=== PATIENT | male | born 1995 | race Caucasian/White ===

== ENCOUNTER 2018-11-24 15:27 | Emergency (ER) | payer SELFPAY ==
[~2018-11-24] VITALS: Ht 185.4 cm; Wt 70.8 kg
[2018-11-24 17:12] LABS: BASO % 0.2 % (0.0-1.0); HEMATOCRIT 43.4 % (42.0-52.0); HEMOGLOBIN 14.3 g/dl (13.5-17.5); LYMPH # 1.7 10^3/uL (1.5-6.5); LYMPH % 32.5 % (24.0-44.0); MEAN CORPUSCULAR HEMOGLOBIN 29.9 pg (27.0-33.0); MEAN CORPUSCULAR HGB CONC 32.9 g/dl (32.0-36.5); MEAN CORPUSCULAR VOLUME 90.6 fl (80.0-96.0); MONO # 0.4 10^3/uL (0.0-0.8); MONO % 6.8 % (0.0-5.0); NEUTROPHILS # 3.1 10^3/uL (1.8-7.7); NEUTROPHILS % 60.3 % (36.0-66.0); PLATELET COUNT, AUTOMATED 267 10^3/uL (150-450); RED BLOOD COUNT 4.79 10^6/uL (4.30-6.10); WHITE BLOOD COUNT 5.2 10^3/uL (4.0-10.0)
[2018-11-24 17:50] LABS: BLOOD UREA NITROGEN 8 MG/DL (7-18); CALCIUM LEVEL 8.8 MG/DL (8.5-10.1); CARBON DIOXIDE LEVEL 27 MEQ/L (21-32); CHLORIDE LEVEL 107 MEQ/L (98-107); CK-MB VALUE MASS < 1.0 NG/ML (<3.6); CPK CREATINE PHOSPHOKINASE 170 U/L (39-308); CREATININE FOR GFR 0.85 MG/DL (0.70-1.30); GLOMERULAR FILTRATION RATE > 60.0 (>60); GLUCOSE, FASTING 89 MG/DL (70-100); MB/CK RELATIVE INDEX 0.59 (< OR =4); POTASSIUM SERUM 4.3 MEQ/L (3.5-5.1); SODIUM LEVEL 139 MEQ/L (136-145); TROPONIN I < 0.02 NG/ML (< 0.10)
[2018-11-24 18:12] VITALS: BP 126/61
--- NOTE | 2018-11-24 19:10 | REP ---
CHEST: Two views. There is no evidence of acute infiltrate. No pleural effusion is seen. The heart is normal in size. The mediastinal silhouette is unremarkable. The visualized osseous structures are intact. IMPRESSION: No acute pulmonary disease. Electronically Signed by Rehan Myers MD 11/26/2018 10:13 A
--- NOTE | 2018-11-24 21:57 | ECGEPIP ---
Stationary ECG Study 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
== END 2018-11-24 18:21 | disposition home or self-care (01) ==
LOC: M ED 15:27
DX: R07.89 Other chest pain (principal); I45.19 Other right bundle-branch block

== ENCOUNTER 2019-01-06 10:08 | Emergency (ER) | payer SELFPAY ==
[~2019-01-06] VITALS: Ht 185.4 cm; Wt 70.5 kg
[2019-01-06 10:08] VITALS: BP 129/61
[2019-01-06] MEDS ORDERED: KEFL500C17 PO (10:43)
== END 2019-01-06 11:11 | disposition home or self-care (01) ==
LOC: M ED 10:08
DX: L03.311 Cellulitis of abdominal wall (principal)